=== PATIENT | male | born 1985 | race Caucasian/White ===

== ENCOUNTER → 2016-11-24 | Outpatient (CLI) | payer OTHER ==
--- NOTE | 2016-11-24 13:54 | DX ---
PA and Lateral Chest X-ray Indication: TB screening evaluation. Findings: The lungs are clear. The lungs are hyperexpanded. Heart size normal. No adenopathy, cons olidation, or apical scarring. Impression: 1. Normal. No evidence of old or active granulomatous disease. 2. Hyperexpanded lungs probably related to increased inspiratory effort. Rule out air trapping.
== END ==
LOC: BMCIMAGING 12:52
PROVIDERS: ATTEND Nurse Practitioner Adult Health
DX: Z11.1 Encounter for screening for respiratory tuberculosis (principal)